=== PATIENT | female | born 1975 | race Caucasian/White ===

== ENCOUNTER 2023-03-19 16:17 | Outpatient (OUT) | payer BC, SELFPAY ==
--- NOTE | 2023-03-19 16:20 | MM_ITS ---
Patient Name: ALBARO RASMUSSEN MR#: [id number] : 1975 Exam Date: 03/19/2023 Ordering Doctor: DR EVANGELINA COLINDRES RADIOLOGY REPORT PROCEDURE: MM TOMOSYNTHESIS SCREENING BI COMPARISON: MG MAMM SCREEN 3D ROCK CAD, 03/16/2022. MG MAMM SCREEN 3D ROCK CAD, 03/06/2021. INDICATIONS: screening Calculator Name NCI Breast Cancer Risk Assessment Tool 5 Year Breast Cancer Risk 1.20% Lifetime Breast Cancer Risk 12.80% Personal Breast Cancer No Personal Ovarian Cancer No Treatments None Family Cancers None LOCATION: [facility] BREAST COMPOSITION: Scattered areas fibroglandular density. FINDINGS: DIAGNOSTIC CATEGORY 1--NEGATIVE. RIGHT BREAST: No significant suspicious finding. No significant change has occurred. LEFT BREAST: No significant suspicious finding. No significant change has occurred. RECOMMENDATIONS: ROUTINE MAMMOGRAM AND CLINICAL EVALUATION IN 12 MONTHS. PLEASE NOTE: A NORMAL MAMMOGRAM DOES NOT EXCLUDE THE POSSIBILITY OF BREAST CANCER. A CLINICALLY SUSPICIOUS PALPABLE LUMP SHOULD BE BIOPSIED. Dictated by: Dayron Brown M.D. on 03/25/2023 at 12:44 Approved by: Dayron Brown M.D. on 03/25/2023 at 12:53
== END 2023-03-19 16:18 | disposition home or self-care (01) ==
LOC: MAMMO 16:17
PROVIDERS: PCP Obstetrics & Gynecology; Visit Provider Obstetrics & Gynecology
DX: Z12.31 Encounter for screening mammogram for malignant neoplasm of breast (principal)
CPT/HCPCS: 77063; 77067

== ENCOUNTER 2024-03-25 07:36 | Outpatient (OUT) | payer OTHER, SELFPAY ==
--- OUTSIDE RECORDS SUMMARY | 2024-03-25 07:39 | XMS_ITS | CCD ---
Author Organization [facility] Inform ion Partnership [employer] Care Team Providers Care Chlorine Operator Name Role Phone DR EVANGELINA COLINDRES Admitting Unavailable PRINTJuan Alberto, DR HUTCHINSON Attending Unavailable REQUEST, DR MOLINA LISTED Primary Care Unavaila daljit REBOLLEDO, DR ARLENE Lobato Consulting Unavailable PRINTY, DR HUTCHINSON Consulting Unavailable PRINTYEVANGELINA Attending Unavailable Problems Problem Classification Problem Date Documented Da te Episodic/Chronic Other screening for suspected conditions (not mental disorders or infectious disease) (4 sources) Encounter for screening mammogram for malignant neoplasm of breast; Translations: [ENC SCR MAMMO MALIG NEOPLASM BREAST] Onset: 03-16-2022 Episodic Results Test Name Value Interpretation Reference Range Facil ity MG MAMM SCREEN 3D ROCK CADon 03-16-2022 MG MAMM SCREEN 3D ROCK CAD Patient: ALBARO RASMUSSEN. Exam Date: 03/16/2022 : 1975 Gender:F Ordering : DR EVANGELINA COLINDRES Admission #: [id number] Family : Order #: [id number] CLICK HERE TO VIEW EXAM RADIOLOGY REPORT PROCEDURE: MAMMOGRAM SCREENING 3D BILATERAL CAD COMPARISON: MG MAMM SCREEN ROCK W CAD, 02/08/2020. MG MAMM SCREEN 3D ROCK CAD, 03/06/2021. INDICATIONS: Screening mammography Calculator Name NCI Breast Cancer Risk Assessment Tool 5 Year Breast Cancer Risk 1.10% Lifetime Breast Cancer Risk 13.00% Personal Breast Cancer No Personal Ovarian Cancer No Treatments None Family Cancers None LOCATION: [facility] BREAST COMPOSITION: Scattered areas fibroglandular density. FINDINGS: DIAGNOSTIC CATEGORY 1--NEGATIVE. NO CHANGE FROM COMPARISON ASSESSMENT. Scattered benign-appearing lymph nodes are present. RIGHT BREAST: No significant suspicious finding. LEFT BREAST: No significant suspicious finding. RECOMMENDATIONS: ROUTINE MAMMOGRAM AND CLINICAL EVALUATION IN 12 MONTHS. PLEASE NOTE: A NORMAL MAMMOGRAM DOES NOT EXCLUDE THE POSSIBILITY OF BREAST CANCER. A CLINICALLY SUSPICIOUS PALPABLE LUMP SHOULD BE BIOPSIED. Dictated by: Arlene Rebolledo MD on 03/16/2022 at 10:27 Approved by: Arlene Rebolledo MD on 03/16/2022 at 10:28 [facility] Encounters Encounter Date Encounter Type Care Provider Facility Start: 12-31-2023 End: 12-31-2023 ambulatory EVANGELINA COLINDRES Not Available Start: 03-16-2022 End: 03-17-[address] EVANGELINA COLINDRES Facility: Payers Date Payer Category Payer Private Health Insurance [id number] 1975 Unknown [id number] 1975 Unknown [id number] 1958 Unknown [id number] Summary Purpose Family History No Family History Records FoundNo Family History Records Found Advance Directives No Advanced Directives Records FoundNo Advanced Directives Records Found Additional Source Comments INFORMATION SOURCE (unrecogn ized section and content) DATE CREATED AUTHOR 03/19/2022 [facility] pital DATE CREATED AUTHOR AUTHOR'S ORGANIZ ATION 01/01/2024 [facility] EPIC FOR RECORDS PERTAINING TO PATIENTS WHO ARE OR HAVE BEEN ENROLLED IN A CHEMICAL DEPENDENCY/SUBSTANCEABUSE PROGRAM, SOME INFORMATION MAY BE OMITTED. This clinical summary was aggregated from multiple sources. Caution should be exercised in using it in the provision of clinical care. This summary normalizes information from multiple sources, and as a consequence, information in this document may materially change the coding, format and clinical context of patient data. In addition, data may be omitted in some cases. CLINICAL DECISIONS SHOULD BE BASED ON THE PRIMARY CLINICAL RECORDS. [employer] provides no warranty or guarantee of the accuracy or completeness of information in this document.
--- NOTE | 2024-03-25 07:42 | MM_ITS ---
Patient Name: ALBARO RASMUSSEN MR#: [id number] : 1975 Exam Date: 03/25/2024 Ordering Doctor: DR EVANGELINA COLINDRES RADIOLOGY REPORT PROCEDURE: MM TOMOSYNTHESIS SCREENING BI COMPARISON: MM TOMOSYNTHESIS SCREENING BI, 03/19/2023. MG MAMM SCREEN 3D ROCK CAD, 03/16/2022. MG MAMM SCREEN 3D ROCK CAD, 03/06/2021. MG MAMM SCREEN ROCK W CAD, 01/23/2018. INDICATIONS: Screening Calculator Name NCI Breast Cancer Risk Assessment Tool 5 Year Breast Cancer Risk 1.20% Lifetime Breast Cancer Risk 12.70% Personal Breast Cancer No Personal Ovarian Cancer No Treatments None Family Cancers None LOCATION: [facility] BREAST COMPOSITION: There are scattered areas of fibroglandular density. FINDINGS: DIAGNOSTIC CATEGORY 1--NEGATIVE. RIGHT BREAST: No significant suspicious finding. No significant change has occurred. LEFT BREAST: No significant suspicious finding. No significant change has occurred. RECOMMENDATIONS: ROUTINE MAMMOGRAM AND CLINICAL EVALUATION IN 12 MONTHS. PLEASE NOTE: A NORMAL MAMMOGRAM DOES NOT EXCLUDE THE POSSIBILITY OF BREAST CANCER. A CLINICALLY SUSPICIOUS PALPABLE LUMP SHOULD BE BIOPSIED. Dictated by: Dayron Brown M.D. on 03/25/2024 at 10:52 Approved by: Dayron Brown M.D. on 03/25/2024 at 10:54
== END 2024-03-25 07:37 | disposition home or self-care (01) ==
LOC: MAMMO 07:37
PROVIDERS: PCP Obstetrics & Gynecology; Visit Provider Obstetrics & Gynecology
DX: Z12.31 Encounter for screening mammogram for malignant neoplasm of breast (principal)
CPT/HCPCS: 77063; 77067

== ENCOUNTER 2025-03-30 16:05 | Outpatient (OUT) | payer OTHER, SELFPAY ==
--- NOTE | 2025-03-30 16:08 | MM_ITS ---
Patient Name: ALBAOR RASMUSSEN MR#: [id number] : 1975 Exam Date: 03/30/2025 Ordering Doctor: DR EVANGELINA COLINDRES RADIOLOGY REPORT PROCEDURE: MM TOMOSYNTHESIS SCREENING BI COMPARISON: MM TOMOSYNTHESIS SCREENING BI, 03/25/2024. MM TOMOSYNTHESIS SCREENING BI, 03/19/2023. MG MAMM SCREEN 3D ROCK CAD, 03/16/2022. MG MAMM SCREEN ROCK W CAD, 01/23/2018. INDICATIONS: screening for malignant neoplasm of breast Calculator Name NCI Breast Cancer Risk Assessment Tool 5 Year Breast Cancer Risk 1.30% Lifetime Breast Cancer Risk 12.50% Personal Breast Cancer No Personal Ovarian Cancer No Treatments None Family Cancers None LOCATION: [facility] BREAST COMPOSITION: There are scattered areas of fibroglandular density. FINDINGS: RIGHT BREAST: No significant suspicious finding. LEFT BREAST: No significant suspicious finding. DIAGNOSTIC CATEGORY 1--NEGATIVE. NO CHANGE FROM COMPARISON ASSESSMENT. RECOMMENDATIONS: ROUTINE MAMMOGRAM AND CLINICAL EVALUATION IN 12 MONTHS. Dictated by: Cecil Mcgovern MD on 03/31/2025 at 10:38 Approved by: Cecil Mcgovern MD on 03/31/2025 at 10:40
--- OUTSIDE RECORDS SUMMARY | 2025-03-30 16:08 | XMS_ITS | Clinical Summary ---
Author Organization [facility] Address [address] [place] [address] Care Team Providers Care Trolley Operator Name Role Phone Unallocated, Noms Provider MD Primary Care Provi edil Allergies No known active allergies Medications MedicationSigDispense QuantityRefillsLast FilledStart DateEnd DateStatus loratadine (Claritin) 10 MG tablet Take 10 mg by mouth 1 (one) time each day at the same time.Active Calcium Carbonate (CALCIUM 500 PO) Take by mouthActive VITAMIN D PO Take by mouthActive Multiple Vitamin (multivitamin) tablet Take 1 tablet by mouth DailyActive norethindrone-ethinyl estradiol (Alyacen 135) 1-35 MG-MCG tablet Indications:Encounter for control pills maintenanceTake 1 tablet by mouth in the morning. 84 tablet 5Active Active Problems No known active problems Encounters DateTypeDepartmentCare UflgFtkxdpyncyx56/09/2025 1:45 PM EDTOffice Visit [facility] [place] [facility] [address] [place] [phone] Evangelina Colindres MD Well woman exam with routine gynecological exam (Primary Dx); Other screening mammogram; Encounter for control pills /09/2025amboo flowsheet [facility] [address] [place] [phone] Evangelina Colindres MD 09/09/2025Travelfrom Last 3 Months Family History Medical HistoryRelationNameCommentsDiabetesMaternal GrandmotherGrandmotherHeart diseaseMaternal GrandmotherGrandmotherStrokeMaternal GrandmotherGrandmother EndometriosisMotherRelationNameStatusCommentsMaternal GrandmotherGrandmother Mother Social History Tobacco UseTypesPacks/DayYears UsedDateSmoking Tobacco: NeverSmokeless Tobacco: Never Tobacco Cessation:Counseling Given: Not Answered Alcohol UseStandard Drinks/WeekCommentsYes2 (1 standard drink = 0.6 oz pure alcohol)coffee 1-2 cups per dayCommentsNoSex and Gender InformationValue Date RecordedSex Assigned at BirthNot on fileLegal IivQlnyss21/15/2023 7:25 PM EDTGender IdentityNot on fileSexual OrientationNot on file Last Filed Vital Signs Vital SignReadingTime TakenCommentsBlood Bzbcaxmy685/6409 1:39 PM EDT Pulse--Pdipjpkrhrq42.3 ??C (97.4 ??F)04/20/2024 11:55 AM ESTRespiratory Rate-- Oxygen Saturation--Inhaled Oxygen Concentration--Qpluxg97.4 kg (142 lb) 01/05/2025 1:39 PM RVXXbqrzh545.8 cm (5' 4.5 )06/09/2024 2:59 PM ESTBody Mass Qwbhw879106/09/2024 2:59 PM EST Plan of Treatment DateTypeDepartmentCare Team (Latest Contact Info)Ctttojwqxkv37/15/2026 1:45 PM EDTOffice Visit [facility] [address] [place] [address] Evangelina Colindres MD [address] [place] [address] Health MaintenanceDue DateLast DoneCommentsCT Opokffjeddck37/08/1977Colonoscopy 1975Colorectal Cancer Wltiztbog68/08/1977FIT-DNA1976FIT1975 FOBT1975 8543Ihduvkidtzrbd39/08/1977COVID-19 Vaccine (1 - 2025-26 season) 2024Influenza Vaccine (#1), 02/17/2018, 02/18/2017 Wnluvaeat26, 03/25/2023, 03/16/2022, Additional history exists Pap Smear/ervical Cancer Ohzoclohe24/28/2028HPV/Cotest , 11/17/2020, 11/17/2019, Additional history exists Pneumococcal Vaccine: Pediatrics (0 to 5 Years) and At-Risk Patients (6 to 64 Years)Aged OutNo longer eligible based on patient's age to complete this topic Procedures Procedure NamePriorityDate/TimeAssociated DiagnosisCommentsMM TOMOSYNTHESIS SCREENING BI03/25/2024 10:55 AM EST THINPREP TIS PAP AND HPV MRNA E6/E7 WITH REFLEX TO HPV 16,18/35Xcihmts72/28/2023 2:53 PM EDT Cervical cancer screening Screening for HPV (human papillomavirus) from Last 3 Months or Most Recently Relevant to Health Maintenance Results * MM TOMOSYNTHESIS SCREENING BI (03/25/2024 10:55 AM EST)Anatomical Region LateralityModalityOtherSpecimen (Source)Anatomical Location / Laterality Collection Method / VolumeCollection TimeReceived Time03/25/2024 10:55 AM EST Narrative 03/25/2024 10:56 AM EST [facility] ?[address] ? [place] [address] ? Mammography Report ? Signed ? Patient: Held,Zaida M ?MR#: [id number] ?? : 1975 ?Acct:[id number] ?? Age/Sex: 48 / F ?ADM Date: 11//24 ?? Loc: MAMMO ? Attending Dr: EVANGELINA PRINTY ? Ordering Physician: PRINTY,EVANGELINA ? Results: ? Date of Service: 11/27/24 ?Follow Up: ? Procedure(s): MM tomosynthesis screening BI ?? Accession Number(s): [id number] ? cc: JENS,EVANGELINA ? Patient Name: ? ZAIDA HELD ? MR#: [id number] ? : 1975 ? Exam Date: 03/25/2024 ?? Ordering Doctor: DR EVANGELINA COLINDRES ? RADIOLOGY REPORT ? PROCEDURE: ? MM TOMOSYNTHESIS SCREENING BI ? COMPARISON: ? MM TOMOSYNTHESIS SCREENING BI, 03/19/2023. ??MG MAMM SCREEN 3D ?? ROCK CAD, 03/16/2022. ??MG MAMM SCREEN 3D ROCK CAD, 03/06/2021. ??MG MAMM SCREEN ?? ROCK W CAD, 01/23/2018. ? INDICATIONS: ? Screening ? Calculator Name ? NCI Breast Cancer Risk Assessment Tool ?? 5 Year Breast Cancer Risk ? 1.20% ?? Lifetime Breast Cancer Risk ? 12.70% ?? Personal Breast Cancer ?No ?? Personal Ovarian Cancer ? No ?? Treatments ? None ?? Family Cancers ? None ? LOCATION: ? [facility] ? BREAST COMPOSITION: ? There are scattered areas of fibroglandular density. ? FINDINGS: ? DIAGNOSTIC CATEGORY 1--NEGATIVE. ? RIGHT BREAST: ??No significant suspicious finding. ??No significant change has ?? occurred. ? LEFT BREAST: ??No significant suspicious finding. ??No significant change has ?? occurred. ? RECOMMENDATIONS: ? ROUTINE MAMMOGRAM AND CLINICAL EVALUATION IN 12 MONTHS. ? PLEASE NOTE: ??A NORMAL MAMMOGRAM DOES NOT EXCLUDE THE POSSIBILITY OF BREAST ?? CANCER. ??A CLINICALLY SUSPICIOUS PALPABLE LUMP SHOULD BE BIOPSIED. ? Dictated by: Dayron Brown M.D. on 03/25/2024 at 10:52 ? Approved by: Dayron Brown M.D. on 03/25/2024 at 10:54 ? Dictated By: ?Dayron Brown M.D. ? Signed By: ?03/25/24 1056 ? DD/ 1055 ? TD/TT: ? Oral And Maxillofacial Surgery: Procedure Note Radiology, Radiologist, MD - 03/25/2024 [place] [address] Mammography Report Signed Patient: Zaida Huggins MMR#: [id number] : 1975Acct:[id number] Age/Sex: 48 / FADM Date: 03/25/24 Loc: MAMMO Attending Dr: EVANGELINA COLINDRES Ordering Physician: EVANGELINA COLINDRESResults: Date of Service: 03/25/24Follow Up: Procedure(s): MM tomosynthesis screening BI Accession Number(s): [id number] cc: EVANGELINA COLINDRES Patient Name: ZAIDA HUGGINS MR#: [id number] : 1975 Exam Date: 03/25/2024 Ordering Doctor: DR EVANGELINA COLINDRES RADIOLOGY REPORT PROCEDURE: MM TOMOSYNTHESIS SCREENING BI COMPARISON: MM TOMOSYNTHESIS SCREENING BI, 03/19/2023. MG MAMM XCTTFE5M ROCK CAD, 03/16/2022. MG MAMM SCREEN 3D ROCK CAD, 03/06/2021. MG MAMMSCREEN ROCK W CAD, 01/23/2018. INDICATIONS: Screening Calculator Name NCI Breast Cancer Risk Assessment Tool 5 Year Breast Cancer Risk 1.20% Lifetime Breast Cancer Risk 12.70% Personal Breast Cancer No Personal Ovarian Cancer No Treatments None Family Cancers None LOCATION: [facility] BREAST COMPOSITION: There are scattered areas of fibroglandulardensity. FINDINGS: DIAGNOSTIC CATEGORY 1--NEGATIVE. RIGHT BREAST: No significant suspicious finding. No significant changehas occurred. LEFT BREAST: No significant suspicious finding. No significant changehas occurred. RECOMMENDATIONS: ROUTINE MAMMOGRAM AND CLINICAL EVALUATION IN 12 MONTHS. PLEASE NOTE: A NORMAL MAMMOGRAM DOES NOT EXCLUDE THE POSSIBILITY OFBREAST CANCER. A CLINICALLY SUSPICIOUS PALPABLE LUMP SHOULD BE BIOPSIED. Dictated by: Dayron Brown M.D. on 03/25/2024 at 10:52 Approved by: Dayron Brown M.D. on 03/25/2024 at 10:54 Dictated By: Dayron Brown M.D. Signed By:03/25/24 1056 DD/ 1055 TD/TT: Oral And Maxillofacial Surgery: Authorizing ProviderResult TypeResult StatusBrian Carmen Colindres MDCLINISYNC IMAGING Final Result * THINPREP TIS PAP AND HPV MRNA E6/E7 WITH REFLEX TO HPV 16,18/45 (12/24/2022 2:53 PM EDT)ComponentValueRef RangeTest MethodAnalysis TimePerformed At Pathologist SignatureCLINICAL INFORMATIONQUESTComment:None givenLMPQUEST Comment:NONE GIVENPREV. PAPQUESTComment:NONE GIVENPREV. BXQUESTComment:NONE GIVENSOURCEQUESTComment:None givenSTATEMENT OF ADEQUACYQUESTComment: Satisfactory for evaluation. Endocervical/transformation zone component present. INTERPRETATION/RESULTQUESTComment: Cytology Results: Negative for intraepithelial lesion or malignancy. COMMENTQUESTComment: This Pap test has been evaluated with computer assisted technology. CYTOTECHNOLOGISTQUESTComment: EMP, CT(ASCP) CT screening location: [facility], [address] [place] [address]. (ALWAYS MESSAGE)QUESTComment: EXPLANATORY NOTE: The Pap is a screening test for cervical cancer. It is not a diagnostic test and is subject to false negative and false positive results. It is most reliable when a satisfactory sample, regularly obtained, is submitted with relevant clinical findings and history, and when the Pap result is evaluated along with historic and current clinical information. HPV MRNA E6/E7Not DetectedNot DetectedQUESTComment: Methodology: Housekeeping Coordinator-Mediated Amplification This assay detects E6/E7 viral messenger RNA (mRNA) from 14 high-risk HPV types (16,18,31,33,35,39,45,51,52,56,58,59,66,68). Cervical sources are required for HPV testing. If a vaginal source from a patient who has had a total hysterectomy with removal of cervix was submitted, please contact the testing laboratory for alternative testing options. For additional information, please refer to http://education.[employer].SupplyFrame/faq/TQH335u7 (This link if provided for information/ educational purposes only.) Specimen (Source)Anatomical Location / LateralityCollection Method / Volume Collection TimeReceived TimeVaginal Fluid12/24/2022 2:53 PM EDT12/25/2022 3:51 AM EDT Narrative Resulting Agency Comment Performing Organization Information ?Site ID: [id number] ?Name: [facility] ?Address: [address] [place] [address], [address] [place] [id number] ?Director: Robert Payne MD Authorizing ProviderResult TypeResult StatusEvangelina Colindres MDLAB CYTOLOGY ORDERABLESFinal ResultPerforming OrganizationAddressCity/State/ZIP CodePhone Number [facility] from Last 3 Months or Most Recently Relevant to Health Maintenance Insurance * Guarantor: Zaida Huggins TypeRelation to PatientDate of BirthPhone Billing AddressPersonal/RnvkcxAjrt23/08/1976 [address] [place] [address] Care Teams Team MemberRelationshipSpecialtyStart DateEnd Date Unallocated, Noms MD Beth [address] [place] [address] PCP - [facility]12/24/22
--- OUTSIDE RECORDS SUMMARY | 2025-03-30 16:10 | XMS_ITS | CCD ---
Author Organization [facility] Care Team Providers Care Bricklayer Helper Name Role Phone JENS, DR HUTCHINSON Admitting Unavailable JENS, DR HUTCHINSON Attending Unavailable REQUEST, NONE LISTED Primary Care Unavaila daljit REBOLLEDO, DR ARLENE Lobato Consulting Unavailable PRINTY, DR HUTCHINSON Consulting Unavailable Unallocated MD, Noms Provider Primary Care Provi edil Unallocated , Noms Provider Primary Care Provi edil SUNIL GROVE Attending Unavailable THOMPSON ROSENTHAL Referring Unavailable THOMPSON ROSENTHAL Attending Unavailable THOMPSON ROSENTHAL Referring Unavailable THOMPSON ROSENTHAL Attending Unavailable THOMPSON ROSENTHAL Referring Unavailable THOMPSON ROSENTHAL Referring Unavailable EVANGELINA CULVER Attending Unavailable THOMPSON ROSENTHAL Referring Unavailable BRIAN SOLOMON Attending Unavailable THOMPSON ROSENTHAL Referring Unavailable SUNIL GROVE Attending Unavailable THOMPSON ROSENTHAL Referring Unavailable SUNIL GROVE Attending Unavailable THOMPSON ROSENTHAL Referring Unavailable BRIAN SOLOMON Attending Unavailable THOMPSON ROSENTHAL Referring Unavailable Medications Current Medications MedicationDrug Class(es)DatesSig (Normalized)Sig (Original)Calcium Carbonate (2 sources)Calcium Carbonate (CALCIUM 500 PO) Take by mouth Activeethinyl estradiol 0.035 mg / norethindrone acetate 1 mg oral tablet (20 sources)EstrogenStart: 12-31-2023 End: 47-35-6697tscipgkzpjklw-ethinyl estradiol (Alyacen 135) 1-35 MG-MCG tablet Indications: Encounter for control pills maintenance Take 1 tablet by mouth in the morning. 84 tablet 4 01/05/2025 ActiveStart: 11-22-2023 End: 58-14-8182bjjg 1 tablet by mouth once daily in the morningAlyacen 1/35 1-35 MG-MCG tablet Indications: Encounter for control pills maintenance TAKE 1 TABLET BY MOUTH EVERY DAY IN THE MORNING 84 tablet 4 11/22/2023 12/31/2023 Discontinued (Reorder)loratadine 10 mg oral tablet (20 sources)take 1 tablet by mouth once dailyloratadine (Claritin) 10 MG tablet Take 10 mg by mouth 1 (one) time each day at the same time. ActiveMultiple Vitamin (multivitamin) tablet (2 sources)take 1 tablet by mouth once dailyMultiple Vitamin (multivitamin) tablet Take 1 tablet by mouth Daily ActiveVITAMIN D PO (2 sources)VITAMIN D PO Take by mouth Active Completed/Discontinued Medications MedicationDrug Class(es)DatesSig (Normalized)Sig (Original)calcium carbonate 1250 mg / cholecalciferol 1000 unt / vitamin k 0.4 mg chewable tablet (20 sources)Vitamin D End: 51-61-7844Urajvsn-Vitamin D-Vitamin K (Calcium + D) 500-1000-40 MG-UNT-MCG chewable tablet as directed Dafgeq9201/05/2025 Discontinued (Ineffective) predniSONE 10 mg oral tablet (15 sources)Start: 04-20-2024 End: 77-48-6643leidmqBPZR (Deltasone) 10 MG tablet Indications: Right shoulder pain, unspecified chronicity 6 pills day 1 & 2, 5 pills day 3 & 4, 4 pills day 5 & 6, 3 pills day 7 & 8, 2 pills day 9 & 10, 1 pill day 11 & 12 42 tablet 04/20/2024 06/09/2024 Discontinued Problems Problem ClassificationProblemDateDocumented DateEpisodic/ChronicContraceptive and procreative management (4 sources)Oral contraception status; Translations: [Encounter for surveillance of contraceptive pills]05-83-3667YbfflqviTxpcm non-traumatic joint disorders (9 sources)Pain in right shoulder; Translations: [Pain in joint, shoulder region]09-54-1079AvrejypzZcsrl screening for suspected conditions (not mental disorders or infectious disease) (8 sources)Encounter for screening mammogram for malignant neoplasm of breast; Translations: [Breast neoplasm screening status]Onset: 99-70-7397Okdndjsg Unclassified (2 sources)Right shoulder pain, unspecified htobtqnapt75-21-5423 Results Test NameValueInterpretationReference RangeFacilityXR Cervical spine 2 or 3 Viewson 07-84-4376Jsjhmbx Result: 2 views cervical spine, AP/lateral, taken today and saved to the permanent medical record. Loss of lordosis. Disc narrowing and endplate osteophytes at C6-C7.[facility] CenterRad[facility] Study observation (narrative) [facility] HealthcareXR Shoulder - right 2 Viewson 76-68-8483Tccejfu Result: 4 views right shoulder, Grashey/Zanca/outlet/axillary, taken today and saved to the permanent medical record are reviewed. GH and AC joint spaces preserved. AHI WNL. Type 2 acromion.[facility] CenterRadiology Study observation (narrative)[facility] TOMOSYNTHESIS SCREENING BIon 93-22-[place] [address] Mammography Report Signed Patient: Jyada Rasmussen MR#: [id number] : 1975 Acct:[id number] Age/Sex: 48 / F ADM Date: 03/25/24 Loc: MAMMO Attending Dr: EVANGELINA CULVER Ordering Physician: EVANGELINA CULVER Results: Date of Service: 03/25/24 Follow Up: Procedure(s): MM tomosynthesis screening BI Accession Number(s): [id number] cc: EVANGELINA CULVER Patient Name: JAYDA RASMUSSEN MR#: [id number] : 1975 Exam Date: 03/25/2024 Ordering Doctor: DR EVANGELINA CULVER RADIOLOGY REPORT PROCEDURE: MM TOMOSYNTHESIS SCREENING BI COMPARISON: MM TOMOSYNTHESIS SCREENING BI, 03/19/2023. MG MAMM SCREEN 3D ROCK CAD, 03/16/2022. MG MAMM SCREEN 3D ROCK CAD, 03/06/2021. MG MAMM SCREEN ROCK W CAD, 01/23/2018. INDICATIONS: Screening Calculator Name NCI Breast Cancer Risk Assessment Tool 5 Year Breast Cancer Risk 1.20% Lifetime Breast Cancer Risk 12.70% Personal Breast Cancer No Personal Ovarian Cancer No Treatments None Family Cancers None LOCATION: [facility] BREAST COMPOSITION: There are scattered areas of fibroglandular density. FINDINGS: DIAGNOSTIC CATEGORY 1--NEGATIVE. RIGHT BREAST: No significant suspicious finding. No significant change has occurred. LEFT BREAST: No significant suspicious finding. No significant change has occurred. RECOMMENDATIONS: ROUTINE MAMMOGRAM AND CLINICAL EVALUATION IN 12 MONTHS. PLEASE NOTE: A NORMAL MAMMOGRAM DOES NOT EXCLUDE THE POSSIBILITY OF BREAST CANCER. A CLINICALLY SUSPICIOUS PALPABLE LUMP SHOULD BE BIOPSIED. Dictated by: Dayron Brown M.D. on 03/25/2024 at 10:52 Approved by: Dayron Brown M.D. on 03/25/2024 at 10:54 Dictated By: Dayron Brown M.D. Signed By: 03/25/24 1056 DD/ 1055 TD/TT: [employer] Worker:TBHRadiology, Radiologist, - 03/25/2024 [place] [address] Mammography Report Signed Patient: Jayda Rasmussen MR#: [id number] : 1975 Acct:[id number] Age/Sex: 48 / F ADM Date: 03/25/24 Loc: MAMMO Attending Dr: EVANGELINA CULVER Ordering Physician: EVANGELINA CULVER Results: Date of Service: 03/25/24 Follow Up: Procedure(s): MM tomosynthesis screening BI Accession Number(s): [id number] cc: EVANGELINA CULVER Patient Name: JAYDA RASMUSSEN MR#: [id number] : 1975 Exam Date: 03/25/2024 Ordering Doctor: DR EVANGELINA CULVER RADIOLOGY REPORT PROCEDURE: MM TOMOSYNTHESIS SCREENING BI COMPARISON: MM TOMOSYNTHESIS SCREENING BI, 03/19/2023. MG MAMM SCREEN 3D ROCK CAD, 03/16/2022. MG MAMM SCREEN 3D ROCK CAD, 03/06/2021. MG MAMM SCREEN ROCK W CAD, 01/23/2018. INDICATIONS: Screening Calculator Name NCI Breast Cancer Risk Assessment Tool 5 Year Breast Cancer Risk 1.20% Lifetime Breast Cancer Risk 12.70% Personal Breast Cancer No Personal Ovarian Cancer No Treatments None Family Cancers None LOCATION: [facility] BREAST COMPOSITION: There are scattered areas of fibroglandular density. FINDINGS: DIAGNOSTIC CATEGORY 1--NEGATIVE. RIGHT BREAST: No significant suspicious finding. No significant change has occurred. LEFT BREAST: No significant suspicious finding. No significant change has occurred. RECOMMENDATIONS: ROUTINE MAMMOGRAM AND CLINICAL EVALUATION IN 12 MONTHS. PLEASE NOTE: A NORMAL MAMMOGRAM DOES NOT EXCLUDE THE POSSIBILITY OF BREAST CANCER. A CLINICALLY SUSPICIOUS PALPABLE LUMP SHOULD BE BIOPSIED. Dictated by: Dayron Brown M.D. on 03/25/2024 at 10:52 Approved by: Dayron Brown M.D. on 03/25/2024 at 10:54 Dictated By: Dayron Brown M.D. Signed By: 03/25/24 1056 DD/ 1055 TD/TT: [employer] Worker: [facility] HospitalRad[facility] observation (narrative)[facility] TOMOSYNTHESIS SCREENING BIOrdered By: Radiologist Radiology on 74-29-1278K[employer] Work Phone: MG MAMM SCREEN 3D ROCK CADon 13-11-6717JB MAMM SCREEN 3D ROCK CADPatient: JAYDA RASMUSSEN Exam Date: 03/16/2022 : 1975 Gender:F Ordering : DR EVANGELINA CULVER Admission #: [id number] Family : Order #: [id number] CLICK HERE TO VIEW EXAM RADIOLOGY REPORT [...] Treatments None Family Cancers None LOCATION: [facility] BREAST COMPOSITION: Scattered areas fibroglandular density. FINDINGS: [...] by: Arlene Rebolledo MD on 03/16/2022 at 10:28[facility] Vital Signs Date TimeVital SignValuePerforming MueiaobwaNqpjvuyt96-35-2120 13:39-0400Body mass index (BMI) [Ratio]24 kg/s1WanzjEvangelina Culver MD Work Phone: [facility] HospitalMkyjoorqpz74-38-9811 13:39-0400Body oeospz00.41 kgEvangelina Culver MD Work Phone: [facility] HospitalFbefctnmgp21-44-8667 13:39-0400Diastolic blood hmwxebep99 mm[Hg]Evangelina Culver MD Work Phone: [facility] HospitalZljwyllzva57-39-6425 13:39-0400Systolic blood alksmhkr806 mm[Hg]Evangelina Culver MD Work Phone: [facility] HospitalDvodxvtidl05-23-4703 14:59-0500Body ayggbf158.8 cmThompson Galo DO Work Phone: [phone]02-11-2025 14:59-0500Body mass index (BMI) [Ratio]24.34 kg/j9Doeqj Galo DO Work Phone: [phone]02-11-2025 14:59-0500Body ijully70.32 kgThompson Galo DO Work Phone: [phone] [place], [place] 9455812-23-2024 11:55-0500Body .8 cmThompson Galo DO Work Phone: [phone] [place], [place] 9455812-23-2024 11:55-0500Body mass index (BMI) [Ratio]24.34 kg/c4Yogjc Galo DO Work Phone: [phone] [place], [place] 9455812-23-2024 11:55-0500Body temperature 97.39 [degF]Thompson Rosenthal DO Work Phone: [phone] [place], [place] 9455812-23-2024 11:55-0500Body mtheqe05.32 kgThompson Galo DO Work Phone: [phone] HospitalLqffkdzivp66-66-4889 13:31-0400Body mass index (BMI) [Ratio]24.03 kg/b9KxergEvangelina Culver MD Work Phone: no[facility] CampusUbfrecepty39-62-2921 13:31-0400Body lgbisj35.5 kg Evangelina Culver MD Work Phone: NORes[facility] CampusLrinptgznl50-53-1172 13:31-0400Diastolic blood mm[Hg]Evangelina Culver MD Work Phone: no[facility] CampusDktmlxremr07-07-0631 13:31-0400Systolic blood mm[Hg]Evangelina Culver MD Work Phone: noMS [facility] Encounters Encounter DateEncounter TypeCare ProviderFacilityStart: 01-05-2025 End: 20-98-0778Vuufov Dorian Culver MD Work Phone: [facility] [place] OBGYNStart: 01-05-2025 End: 27-47-0125Gzfxkg Dorian Culver MD Work Phone: noCO [place] OBGYNStart: 01-05-2025 End: 50-03-9998Ptgamhi encounter procedureEvangelina Culver MD Work Phone: noCO [facility] Work Phone: start: 01-05-2025 End: 98-45-5685Wvkfosgq preventive med est patient 40-64yrsEvangelina Culver MD Work Phone: noms [place] OBGYNComment on above:Well woman exam with routine gynecological exam (Primary Dx); Other screening mammogram; Encounter for control pills maintenanceStart: 01-05-2025 End: 80-26-0567aupvpmgdtnVXJXY J PRINTYNot AvailableStart: 06-09-2024 End: 40-69-6320Xlwkjwu encounter procedureThompson Rosenthal DO Work Phone: noms NB ORTHOComment on above:Right shoulder pain, unspecified chronicity (Primary Dx)Start: 06-09-2024 End: 78-99-5428tsbduoibmpKQHFW A BROWNNot AvailableStart: 06-09-2024 End: 62-66-9303Jqosjf Cliff Rosenthal DO Work Phone: NOEY ORTHOStart: 06-09-2024 End: 23-79-6908Zeptws Cliff Rosenthal DO Work Phone: noms ORTHOStart: 05-22-2024 End: 09-09-7536rilnyiprlnHxjffoy Kelbley PTANOMS CI PTComment on above:Right shoulder pain, unspecified chronicity (Primary Dx)Start: 05-22-2024 End: 88-99-6663Vrmmjn flowsheetMelissa Kelbley PTANOMS CI PTStart: 05-22-2024 End: 47-46-3750Rqfijf flowsheetMelissa Kelbley PTANOMS CI PTStart: 05-12-2024 End: 41-10-3754llyqknkkihNnviezDebby Solomon PT Work Phone: noms CI PTComment on above:Right shoulder pain, unspecified chronicity (Primary Dx)Start: 05-12-2024 End: 99-27-7018Fmxiifvanessa Solomon PT Work Phone: noms CI PTStart: 05-12-2024 End: 99-05-4530Cquaiuvanessa Solomon PT Work Phone: noms CI PTStart: 05-07-2024 End: 65-19-8314oonwlmcsgsGjhgxxy Kelbley PTANOMS CI PTComment on above:Right shoulder pain, unspecified chronicity (Primary Dx)Start: 05-07-2024 End: 01-53-9066Venduf flowsheetMelissa Kelbley PTANOMS CI PTStart: 05-07-2024 End: 04-64-6755Hqxttw flowsheetMelissa Kelbley PTANOMS CI PTStart: 05-05-2024 End: 56-59-0727cwlvcbitrvPalptyi Kelbley PTANOMS CI PTComment on above:Right shoulder pain, unspecified chronicity (Primary Dx)Start: 05-05-2024 End: 83-22-7638Isrkzm flowsheetMelissa Kelbley PTANOMS CI PTStart: 05-05-2024 End: 18-89-6628Mbuonz flowsheetSunil Grove PTANOMS CI PTStart: 04-27-2024 End: 26-29-2158Kmmfml flowsheetAnthonyálvaromaribel Solomon PT Work Phone: NOMS CI PTStart: 04-27-2024 End: 77-20-9920Iummgv flowsheetBrian Solomon PT Work Phone: NOMS CI PTStart: 04-27-2024 End: 97-27-2579xpstwyznaeSmvcfv T Blackston PT Work Phone: NOMS CI PTComment on above:Right shoulder pain, unspecified chronicity (Primary Dx)Start: 04-20-2024 End: 70-35-7484Ugooag Cliff Kirkland Galo DO Work Phone: NOMS SWS ORTHOAOStart: 04-20-2024 End: 95-96-9868Qbpclz Cliff Rosenthal DO Work Phone: [phone] SWS ORTHOAOStart: 04-20-2024 End: 53-97-6304Atbzuwq encounter procedureThompson Rosenthal DO Work Phone: NOMS SWS ORTHOAOComment on above:Right shoulder pain, unspecified chronicity (Primary Dx)Start: 04-20-2024 End: 42-74-1682ebfmusvemzAZLFB A BROWNNot AvailableStart: 03-25-2024 End: 15-79-4917Lggiszmqi Result Deepthi Culver MD Work Phone: NOOT External Department UnsolicitedStart: 03-25-2024 End: 50-88-9707Zqftkjrqf Result EncounterEvangelina Culver MD Work Phone: noms External Department UnsolicitedStart: 12-31-2023 End: 28-78-9971Dpbbyx Dorian Culver MD Work Phone: NOVX SWS OBStart: 12-31-2023 End: 82-91-6637Hjlzoi Dorian Culver MD Work Phone: [facility] OBStart: 12-31-2023 End: 38-70-1377Ougednd encounter procedureEvangelina Culver MD Work Phone: NOCO HealthcareStart: 12-31-2023 End: 60-00-6933Dhxzbidr preventive med est patient 40-64yrsEvangelina Culver MD Work Phone: [facility] OBComment on above:Encounter for control pills maintenance (Primary Dx); Well woman exam with routine gynecological exam; Other screening mammogramStart: 03-16-2022 End: 18-00-0997blgqioujvwHZ EVANGELINA CULVERFacility:H1 Procedures DateProcedureProcedure DetailPerforming ClinicianStart: 04-20-2024 End: 65-74-9715Ocoyv spine cervical 2 or 3 viewsThompson Rosenthal DO Work Phone: Start: 75-45-6646WZ TOMOSYNTHESIS SCREENING Lesli Culver MD Work Phone: start: 25-63-7712OdsekcsnmujNnyex Brown DO Work Phone: Start: 04-84-4933EqwpduzkkmeTqfrq Printy MD Work Phone: start: 84-61-6358Hmsjnihkywn observation [Identifier] in Cervix by Cyto stainEvangelina Culver MD Work Phone: Plan of Treatment DateCare ActivityDetailAuthorStart: 30-74-7263Icnmqcihf for malignant neoplasm of cervixNOMS HealthcareStart: 01-11-2026 End: 32-50-0170Xzjyrzr encounter zbuzlgdem09/15/2026 1:45 PM EDT Office Visit JESSICA BOOTH [address] [place] [address] Evangelina Culver MD [address] [place] [address] NOMKlever MOSSNStart: 08-83-2800Cjgwsormq for malignant neoplasm of cervixPap SmearNOCO HealthcareStart: 03-26-2025 End: 17-30-3021ZKQ Breast - bilateral screeningBilateral screening mammogram with tomosynthesis Imaging Routine Other screening mammogram Expected: 03/26/2025, Expires: 02/22/2026[facility] Work Phone: comment on above:Expected: 03/26/2025, Expires: 02/22/2026Start: 01-63-6499Ouutifgkh for malignant neoplasm of breastMammogram NOMS HealthcareStart: 01-05-2025 End: 63-90-0593Uyttqva encounter procedureNOMS SWS OBComment on above:Well woman exam with routine gynecological exam; Other screening mammogramStart: 02-38-1984Lnjqwgdiu vaccinationInfluenza Vaccine (#1)[facility]S HealthcareStart: 06-09-2024 End: 31-40-9682Eiuxfji encounter procedureNOMS NB ORTHOComment on above:Arrived Start: 06-02-2024 End: 48-67-2828Oyhqpnp encounter wivdlbdpx04/04/2025 2:45 PM EST Office Visit [facility]THO [address] [place] [address] Thompson Rosenthal DO [address] [facility] [place] [address] NOMS NB ORTHOStart: 05-22-2024 End: 42-71-3153jiybwneaes42/24/2025 2:30 PM EST Treatment [facility] CI PT [address] [facility] [address] [place] [address] Sunil Grove PTA ArrivedNOMS CI PTComment on above:ArrivedStart: 05-14-2024 End: 04-05-9692zuzwtpfvew92/16/2025 4:30 PM EST Treatment [facility] PT [address] [facility] [address] [place] [address] Brian Solomon, PT [address] [facility] [address] [place] [address] NOMS CI PTStart: 05-12-2024 End: 78-46-7534gwywzhldgcBMTJ CI PTComment on above:ArrivedStart: 05-07-2024 End: 45-57-9433dniybfexsoACIN CI PTComment on above:ArrivedStart: 05-05-2024 End: 87-53-5978lwldusnlxkKAHW CI PTComment on above:ArrivedStart: 04-27-2024 End: 44-72-4312aidmxjlygdYHNG CI PTComment on above:Right shoulder pain, unspecified chronicityStart: 04-20-2024 End: 29-22-0817Ybugdai encounter vcxtemrva05/23/2024 11:45 AM EST Office Visit [facility] ORTHOA[facility] [address] [place] [address] Thompson Rosenthal DO [address] [facility] [place] [address] ArrivedNOMS SWS ORTHOAOComment on above:ArrivedStart: 97-21-6239Eraeagvjf for malignant neoplasm of breastMammogramNOCO Healthcare Start: 03-20-2024 End: 91-40-5902ZRL Breast - bilateral screeningBilateral screening mammogram with tomosynthesis Imaging Routine Other screening mammogram Expected: 03/20/2024, Expires: 02/24/2025[facility] Work Phone: comment on above:Expected: 03/20/2024, Expires: 02/24/2025Start: 12-31-2023 End: 41-94-8017Jvvocpf encounter xuodvtsro57/03/2024 1:30 PM EDT Office Visit [facility] OB [address] [place] [address] Evangelina Culver MD [address] [place] [address] Well woman exam with routine gynecological exam; Other screening mammogramNOMS SWS OBComment on above:Well woman exam with routine gynecological exam; Other screening mammogramStart: 06-82-4432Vwueyyfir vaccinationInfluenza Vaccine (#1)NOMS HealthcareStart: 69-04-8100Wpcmgammp for malignant neoplasm of colon [facility] Immunizations Immunization DateImmunizationNotesCare LqjszqrxUocylrkg40-27-5121pzmqvhqma virus vaccine, unspecified formulationEvangelina Culver MD Work Phone: [facility] Payers DatePayer CategoryPayerPolicy [id number] Health Insurance [id number] Health Insurance [id number] BCBS [id number] 2022-[facility] [phone] [address] [place] [id number] [id number] 2.0.1.022021.3.57[id number] 2..1.805812.3.57[id number] 2..1.870873.3.57[id number] 2.0.1.633349.3.57[id number] 2.0.1.955768.3.57[id number] 2.0.1.808508.3.57[id number] 2.0.1.277432.3.579.[id number] 2.0.1.538783.3.57[id number] 2.16.840.1.379931.3.57[id number] 2.16.840.1.538575.3.57[id number] 2..840.1.354686.3.57[id number] 2.16.840.1.071713.3.579.2.128144-07-5498Zeltklq682931199992 Social History DateTypeDetailFacilityStart: 66-49-6428Ylzdckr smoking status NHISNever smoked tobaccoJORDAN VALLEY MED[facility] HealthcareStart: 52-14-2813Qdibgpr use and exposureSmokeless tobacco non-userNOCO HealthcareStart: 12-26-2023 End: 59-20-9242Qrnjcwdkr beverage intakeCurrent drinker of alcohol (finding)[facility]OMS HealthcareStart: 12-26-2023 End: 01-53-0751Fjxuygifj beverage intakeNOCO HealthcareStart: 12-24-2022 End: 10-65-7241Muscysk use panelNOCO HealthcareStart: 56-82-9716Sneckst Comment coffee 1-2 cups per dayNOCO HealthcareStart: 31-38-4358Llw assigned at birthNot on fileJORDAN VALLEY [facility] HealthcareStart: 87-13-0548OeeTiozzaSLOD Healthcare Clinical Notes 12-31-2023 to 01-05-2025 Note Date & MmvuMncaAksunodq97-04-4325 History of Present illness Narrative* Evangelina Culver MD - 01/05/2025 1:45 PM EDT Images from the original note were not included. Evangelina Culver MD Obstetrics and Gynecology Patient: Jayda Rasmussen, : 1975 (49 y.o.) DOS 01/05/25 Exam Date: 01/05/2025 HPI: Yearly exam She is well Eeds refill of OCPs Visit Vitals BP 118/64 Wt 142 lb LMP 12/14/2024 BMI 24.00 kg/m OB Status Having periods Smoking Status Never BSA 1.71 m OB History Para Term AB Living 1 1 1 0 0 1 SAB IAB Ectopic Multiple Live Births 0 0 0 0 1 # Outcome Date GA Lbr Emmett/2nd Weight Sex Type Anes PTL Lv 1 Term Obstetric Comments Pap: 12/19-Neg CARON; HPV Neg Mammo: 03/25/24-Neg (TBH) Necon; every month, varies in blood loss, LMP: 12/14/24 Medication and Allergies Medication Documentation Review Audit Reviewed by Ela Garcias MA ([employer] Consultant) on 01/05/25 at 1342 Medication Order Taking? Sig Documenting Provider Last Dose Status Calcium Carbonate (CALCIUM 500 PO) [id number] Yes Take by mouth Evangelina Culver MD Active Discontinued 01/05/25 1341 loratadine (Claritin) 10 MG tablet [id number] Take 10 mg by mouth 1 (one) time each day at the same time. Historical Provider, Active Multiple Vitamin (multivitamin) tablet [id number] Yes Take 1 tablet by mouth Daily Evangelina Culver MDActive norethindrone-ethinyl estradiol (Alyacen ) 1-35 MG-MCG tablet [id number] Take 1 tablet by mouth in the morning. Evangelina Culver MD Active VITAMIN D PO [id number] Yes Take by mouth Evangelina Culver MD Active No Known Allergies Past Medical History: Diagnosis Date Abnormal Pap smear of cervix Past Surgical History: Procedure Laterality Date CERVICAL BIOPSY W/ LOOP ELECTRODE EXCISION SECTION, LOW TRANSVERSE 2013 COLPOSCOPY 2010 TYMPANOPLASTY Physical Exam: Objective Physical Exam Constitutional: Appearance: Normal appearance. Genitourinary: Vulva normal. No vaginal discharge or bleeding. Right Adnexa: not palpable. Left Adnexa: not palpable. No cervical lesion. Uterus is not enlarged or tender. Breasts: Right: Normal. Left: Normal. Abdominal: General: Abdomen is flat. Palpations: Abdomen is soft. Neurological: Mental Status: She is alert. Assessment/Plan ICD-10-CM 1. Well woman exam with routine gynecological exam Z01.419 2. Other screening mammogram Z12.31 Bilateral screening mammogram with tomosynthesis 3. Encounter for control pills maintenance Z30.41 norethindrone-ethinyl estradiol (Alyacen ) 1-35 MG-MCG tablet Orders Placed This Encounter Procedures Bilateral screening mammogram with tomosynthesis U/S and spot compression if indicated Standing Status: Future Expected Date: 03/26/2025 Expiration Date: 02/22/2026 Reason for exam:: screen Is the patient ?: No documented in this encounterSullivan County Memorial HospitalNbvqunnfer32-81-1262 History of Present illness Narrative* Thompson Rosenthal, DO - 06/09/2024 2:45 PM EST Images from the original note were not included. @ENCDATE@ Jayda Rasmussen is a 49 y.o. female who presents for Follow-up of the Right Shoulder and Follow-up of the Neck HPI: History of Present Illness The patient is a 49-year-old left-hand dominant female who presents today to follow up on her neck and upper extremity pain. She has been participating in physical therapy and was placed on a Medrol Dosepak on 04/20/2024. She reports that the initial days of prednisone administration provided some relief, but the overall impact was minimal. She found the stretching exercises in physical therapy beneficial, but the strength training did not yield significant improvement. Her pain is intermittent, though less severe thanbefore. She describes her pain as an ache, similar to a pulled muscle, localized more towards the trapezius and clavicle area rather than the shoulder. She continues to have a bump over the right S.C. joint. She reports no discomfort in the shoulder blade region. One of her physical therapists sugge sted the possibility of arthritis, given her history of lower back arthritis. She recalls a sessionwith a physical therapist who noted significant tension in the area and attempted to alleviate it through needling. She has not tried any topical treatments or patches for local application. She occasionally applies heat or ice post-therapy, finding heat more soothing. She also finds relief from soaking in a warm tub. She reports no issues with neck mobility. She has made modifications to her sleeping and working environment, including adding a 3-inch memory foam topper to her mattress and replacing her desk chair with one that can be adjusted to a higher position. These changes have resultedin the most noticeable improvement. However, she experienced a flare-up of symptoms after a strenuous day at [employer]. She uses a memory foam pillow and has had to adjust her sleeping position due to the mattress topper, now sleeping on her back or side instead of her stomach. She uses a full body pillow for support. She is a left-handed individual who has been actively involved in sports such as gymnastics, softball, and basketball throughout her life. Cold weather exacerbates her pain. SUBJECTIVE: MEDICATIONS: Current Outpatient Medications Medication Instructions Calcium-Vitamin D-Vitamin K (Calcium + D) 500-1000-40 MG-UNT-MCG chewable tablet as directed Orally loratadine (CLARITIN) 10 mg, Every 24 hours norethindrone-ethinyl estradiol (Alyacen 1/35) 1-35 MG-MCG tablet 1 tablet, Oral, Every morning ALLERGIES: No Known Allergies SURGICAL HISTORY: Past Surgical History: Procedure Laterality Date CERVICAL BIOPSY W/ LOOP ELECTRODE EXCISION SECTION, LOW TRANSVERSE 2013 COLPOSCOPY 2010 TYMPANOPLASTY FAMILY HISTORY: Family History Problem Relation Name Age of Onset Endometriosis Mother Diabetes Maternal Grandmother Grandmother Heart disease Maternal Grandmother Grandmother Stroke Maternal Grandmother Grandmother SOCIAL HISTORY: Social History Tobacco Use Smoking status: Never Smokeless tobacco: Never Substance Use Topics Alcohol use: Yes Alcohol/week: 2.0 standard drinks of alcohol Types: 2 Standard drinks or equivalent per week Comment: coffee 1-2 cups per day Drug use: Never Depression: Not on file REVIEW OF SYMPTOMS: Review of Systems The review of systems, history and current medications list are all reviewed today. OBJECTIVE: Visit Vitals Ht 5' 4.5 Wt 144 lb BMI 24.34 kg/m OB Status Having periods Smoking Status Never BSA 1.72 m Physical Exam Alert and oriented, no acute distress. Mood and affect are appropriate. CERVICAL SPINE The patient has well-maintained flexion and extension, rotation and side-bending and range of motion does not produce any symptoms into the shoulder. Negative Spurling's. There is no paraspinal or midline cervical tenderness. RIGHT SHOULDER The skin is warm, dry, and intact. There is no swelling, atrophy, or deformity. The patient can raise the arm overhead. Full forward elevation, abduction, internal and external rotation. No weakness with internal and external rotation, resisted supination, or forward flexion. Negative Virden's. Negative Neer/Bird impingement. No tenderness over the AC joint. Negative cross-arm adduction. Negative Speed's and Yergason's. No instability. Prominence and tenderness over S.C. joint. No erythema. LEFT SHOULDER The skin is warm, dry, and intact. There is no swelling, atrophy, or deformity. The patient can raise the arm overhead. Full forward elevation, abduction, internal and external rotation. No weakness with internal and external rotation, resisted supination, or forward flexion. Negative Virden's. Negative Neer/Bird impingement. No tenderness over the AC joint. Negative cross-arm adduction. Negative Speed's and Yergason's. No instability. BILATERAL UPPER EXTREMITIES Sensation is intact to light touch over all dermatomes. The patient can make an OK sign, cross the fingers, and extend the thumb against resistance. 5/5 elbow flexion and extension, shoulder abduction, and shoulder shrug. Biceps, triceps, brachioradialis reflexes are symmetric. Negative Mora's. Brisk capillary refill and palpable radial pulses. Ortho Exam Results ASSESSMENT AND PLAN: I reviewed the history, physical exam, diagnostic studies, and diagnosis with the patient. Assessment & Plan 1. Sternoclavicular pain, right shoulder She is advised to apply Voltaren gel and Salonpas lidocaine patches to the affected area to see if these provide relief. If her condition does not improve or worsens, she should contact the office, at which point a CT scan of the chest area may be ordered for further evaluation. Continue with work position modifications and sleep/bed modifications. The patient would like to leave follow up to his/her own discretion. A total of 20 to 29 minutes was spent on this patient encounter which included chart review, check in, nurse triage, history taking, physical examination, diagnostic study review, patient counseling and discussion, entering information into the patient's medical record, and coordinating patient care There are no diagnoses linked to this encounter. Thompson Rosenthal D.O. Attestation This note was created using voice recognition through [employer]. documented in this encounterSullivan County Memorial [id number] History of Present illness Narrative* Brian Solomon, PT - 05/12/2024 4:00 PM EST Images from the original note were not included. Physical Therapy Treatment Visit Patient Name: Jayda Rasmussen Today's Date: 05/12/24 Encounter Diagnoses Name Primary? Right shoulder pain, unspecified chronicity Yes Visit number: 3 (1 visit in 2023) Timed Code Treatment: 40 minutes Total Treatment Time: 40 minutes Time In: 4:30 PM Time Out: 5:10 PM History: Pt. Presents to PT with c/c of right anterior shoulder/clavicle pain which started in January. Pt. Was moving a case of water at [employer] and felt a pop in shoulder. Reports predizone helping to decrease pain. Pt is on 7 days of predizone. Left hand dominant. Precautions: as tolerated Subjective: Reports not much improvement. Has a dip in her right clavicle now. Some days she has pain and other days she has no pain. Pain: denies Objective: PT Evaluation (04/27/24) Right shoulder AROM: normal ROM in all planes Right shoulder flexibility: moderate right Upper trapezius/levator scapula muscle tightness Right shoulder strength: grossly 4 to 4+/5 in all planes Palpation: TTP right stenoclavicular joint and anterior shoulder Treatment: Manual Therapy: (16 minutes) Passive ROM, Joint mobilization, Soft Tissue Mobilization, Myofascial Release, Muscle Energy Technique, Neural Mobilization, Myofascial Cupping, Dry Needling, IASTM, and Scar mobilization Therapeutic Exercise: (24 minutes supervised ) Guided pt through ther and flex ex per grid to improve postural awareness, scapular, R UE, shoulder Strength, Endurance, Flexibility, ROM, HEP Therapeutic Activity: Exercises to improve dynamic activities, functional tasks, functional mobility to return to prior activity level Neuromuscular re-education: Balance Training, Muscle Facilitation, Dynamic Stability, Core Stabilization, and Blood Flow Restriction Training (BFRT) Modalities: ( minutes) CP to R Sternoclavicular area post session to decrease soreness DN: 1x needle, fanning, right upper trapezius, Assessment: Pt has participated in 3 PT session with start of POC on 04/27/24 for right shoulder pain. Trial ofDN to right upper trapezius muscle today. 3x LTRs. Pt. Tolerated well. Continue to work to improve scapular muscle strength. Follows up with Dr Rosenthal 2-4 Outcome Measure: 64/80 Short Term Goal: To be met in 2 weeks Goal 1: Pt to be instructed in home exercise program. 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 Goal 2: Pt. Will report of 0/10 right shoulder pain while lift/reaching to perform overhead tasks to help improve her quality of life. Goal 3: pt. Will demonstrate normal right shoulder girdle muscle flexibility to help decrease pain and return to PLOF. Goal 4: Pt. Will demonstrate 5/5 right shoulder strength grossly in all planes to allow her to liftobjects to perform daily household activities. Goal 5: Pt. Will score 75 or greater on UEFS to help improve her functional mobility. Pt will benefit from skilled PT for 1-3x/week from 04/27/24 to 07/20/24 to address the above impairments. I hereby deem this POC medically necessary. Please sign below. Date: documented in this [facility]12-23-2024 History of Present illness Narrative* Thompson Rosenthal, DO - 04/20/2024 11:45 AM EST Images from the original note were not included. @ENCDATE@ [facility] Bhavna is a 48 y.o. female who presents for Pain of the Right Shoulder HPI: History of Present Illness The patient is a 48-year-old female who presents as a new patient today for right shoulder pain. She is left-handed. She first experienced discomfort in her right arm in 01/2024, characterized by tenderness that was intermittent in nature. In 02/2024, she observed an elevation in her right medial collarbone compared to the left, which has been a persistent but non-painful issue. As a former ath lete, she acknowledges a high pain tolerance and may not always be aware of symptoms. During weekend, while lifting cases of water, she heard a popping sound accompanied by brief pain. Since then, she has experienced occasional sharp pains with certain movements. Last week, while assisting her son at basketball practice, she felt a crinkling sensation when pulling on his high-top shoes, followed by a period of relief. She reports no constant pain but describes regular discomfort,particularly at night. She also experiences muscle soreness in her neck and shoulder, which is morepronounced in the evening. She finds it difficult to find a comfortable sleeping position and does not believe her condition will improve without intervention. She has been avoiding heavy lifting. 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 She reports varying degrees of discomfort, including tightness with lifting, but maintains full range of motion. She occasionally experiences tingling down her arm. She has a family history of scoliosis in her maternal aunt and was tested for it in her youth, but was not diagnosed due to a curvature of less than 5 degrees She has a history of competitive gymnastics from the age of 5, softball, cheerleading, cross countryrunning, basketball, and dirt bike riding. She has taken Aleve or naproxen on a few occasions. FAMILY HISTORY Her maternal aunt had scoliosis and was in a brace from chin to hip for quite some time. SUBJECTIVE: MEDICATIONS: Current Outpatient Medications Medication Instructions Calcium-Vitamin D-Vitamin K (Calcium + D) 500-1000-40 MG-UNT-MCG chewable tablet as directed Orally loratadine (CLARITIN) 10 mg, Every 24 hours norethindrone-ethinyl estradiol (Alyacen 1/) 1-35 MG-MCG tablet 1 tablet, Oral, Every morning predniSONE (Deltasone) 10 MG tablet 6 pills day 1 & 2, 5 pills day 3 & 4, 4 pills day 5 & 6, 3 pills day 7 & 8, 2 pills day 9 & 10, 1 pill day 11 & 12 ALLERGIES: No Known Allergies SURGICAL HISTORY: Past Surgical History: Procedure Laterality Date CERVICAL BIOPSY W/ LOOP ELECTRODE EXCISION SECTION, LOW TRANSVERSE 2013 COLPOSCOPY 2010 TYMPANOPLASTY FAMILY HISTORY: Family History Problem Relation Name Age of Onset Endometriosis Mother Diabetes Maternal Grandmother Grandmother Heart disease Maternal Grandmother Grandmother Stroke Maternal Grandmother Grandmother SOCIAL HISTORY: Social History Tobacco Use Smoking status: Never Smokeless tobacco: Never Substance Use Topics Alcohol use: Yes Alcohol/week: 2.0 standard drinks of alcohol Types: 2 Standard drinks or equivalent per week Comment: coffee 1-2 cups per day Drug use: Never Depression: Not on file REVIEW OF SYMPTOMS: Review of Systems The review of systems, history and current medications list are all reviewed today. OBJECTIVE: Visit Vitals Temp 97.4 F Ht 5' 4.5 Wt 144 lb BMI 24.34 kg/m OB Status Having periods Smoking Status Never BSA 1.72 m Physical Exam Alert and oriented, no acute distress. Mood and affect are appropriate. Ambulating independently. Gait is nonantalgic. CERVICAL SPINE Maintained ROM. Some discomfort in R trapezius with ROM. Tender paraspinal musculature on lower right side. Negative spurlings RIGHT SHOULDER The skin is warm, dry, and intact. The patient's sternoclavicular joint is slightly more prominent on the right side. No tenderness, swelling, or redness. The patient has good shoulder mobility and strength.The patient can raise the arm overhead. Full forward elevation, abduction, internal and external rotation. No weakness with internal and external rotation, resisted supination, or forward flexion. positive Virden's. Positive Neer/Bird impingement. No tenderness over the AC joint. Negative cross-arm adduction. Negative Speed's and Yergason's.No instability. LEFT SHOULDER The skin is warm, dry, and intact. There is no swelling, atrophy, or deformity. The patient can raise the arm overhead. Full forward elevation, abduction, internal and external rotation. No weakness with internal and external rotation, resisted supination, or forward flexion. Negative Virden's. Negative Neer/Bird impingement. No tenderness over the AC joint. Negative cross-arm adduction. Negative Speed's and Yergason's. No instability. Ortho Exam Results Imaging 4 views right shoulder, Grashey/Zanca/outlet/axillary, taken today and saved to the permanent medical record are reviewed. GH and AC joint spaces preserved. AHI WNL. Type 2 acromion. 2 views cervical spine, AP/lateral, taken today and saved to the permanent medical record. Loss of lordosis. Disc narrowing and endplate osteophytes at C6-C7. ASSESSMENT AND PLAN: I reviewed the history, physical exam, diagnostic studies, and diagnosis with the patient. Assessment & Plan 1. Cervical disc disease with right upper extremity radiculopathy The right sternoclavicular joint exhibits a slight prominence, likely due to muscle imbalance rather than trauma-induced ligament damage. The absence of the normal cervical curve suggests increased muscle tension. The presence of narrowing and spurring at one level could be exerting pressure on the intervertebral disc, potentially causing nerve irritation and referred pain to the collar bone and shoulder. An oral steroid will be prescribed to alleviate inflammation. Physical therapy will be initiated to address the muscles and joints around the neck and shoulder girdle. If there is no improvement in symptoms after 6 weeks, further diagnostic steps will be considered. Follow-up The patient will follow up in 6 weeks. Diagnoses and all orders for this visit: Right shoulder pain, unspecified chronicity - XR shoulder 2+ views right - XR cervical spine 2 or 3 views - Ambulatory referral to Physical Therapy; Future - predniSONE (Deltasone) 10 MG tablet; 6 pills day 1 & 2, 5 pills day 3 & 4, 4 pills day 5 & 6, 3 pills day 7 & 8, 2 pills day 9 & 10, 1 pill day 11 & 12 A total of 45-59 minutes was spent on this patient encounter which included chart review, check in,nurse triage, history taking, physical examination, diagnostic study review, patient counseling anddiscussion, entering information into the patient's medical record, and coordinating patient care. Thompson Rosenthal D.O. Attestation This note was created using voice recognition through [employer]. documented in this encounterSullivan County Memorial [id number] History of Present illness Narrative* Evangelina Culver MD - 12/31/2023 1:30 PM EDT Images from the original note were not included. Evangelina Culver MD Obstetrics and Gynecology Patient: Jayda RasmussenDOB: 1975 (48 y.o.) DOS 12/31/23 Exam Date: 12/31/2023 HPI: Yearly exam Needs refill of OCPs Visit Vitals BP 110/72 Wt 140 lb LMP 10/30/2023 BMI 24.03 kg/m OB Status Having periods Smoking Status Never BSA 1.69 m OB History Para Term AB Living 1 1 1 0 0 1 SAB IAB Ectopic Multiple Live Births 0 0 0 0 1 # Outcome Date GA Lbr Emmett/2nd Weight Sex Type Anes PTL Lv 1 Term Obstetric Comments Pap: 12/19-Neg CARON; HPV Neg Mammo: 03/19/23-Neg (TBH) Necon; every month, varies in blood loss, LMP: 10/30/23 Medication and Allergies Medication Documentation Review Audit Reviewed by Ela Garcias MA ([employer] Consultant) on 12/31/23 at 1335 Medication Order Taking? Sig Documenting Provider Last Dose Status Alyacen 1-35 MG-MCG tablet [id number] TAKE 1 TABLET BY MOUTH EVERY DAY IN THE MORNING Evangelina Culver MD Active Calcium-Vitamin D-Vitamin K (Calcium + D) 500-1000-40 MG-UNT-MCG chewable tablet [id number] as directed Orally Historical Provider, Active loratadine (Claritin) 10 MG tablet [id number] Take 10 mg by mouth 1 (one) time each day at the same time. Historical Provider, Active No Known Allergies Past Medical History: Diagnosis Date Abnormal Pap smear of cervix Past Surgical History: Procedure Laterality Date CERVICAL BIOPSY W/ LOOP ELECTRODE EXCISION SECTION, LOW TRANSVERSE 2013 COLPOSCOPY 2010 TYMPANOPLASTY Physical Exam: Objective Physical Exam Constitutional: Appearance: Normal appearance. Genitourinary: Vulva normal. No vaginal discharge or bleeding. Right Adnexa: not palpable. Left Adnexa: not palpable. No cervical lesion. Uterus is not enlarged or tender. Breasts: Right: Normal. Left: Normal. Pulmonary: Effort: Pulmonary effort is normal. Abdominal: Palpations: Abdomen is soft. Neurological: Mental Status: She is alert. Associated Treatments and Results - ICD-10-CM 1. Well woman exam with routine gynecological exam Z01.419 2. Other screening mammogram Z12.31 Bilateral screening mammogram with tomosynthesis Assessment/Plan Orders Placed This Encounter Procedures Bilateral screening mammogram with tomosynthesis U/S and spot compression if indicated Standing Status: Future Standing Expiration Date: 02/24/2025 Order Specific Question: Reason for exam: Answer: screen Order Specific Question: Is the patient ? Answer: No documented in this [facility]* Diagnosis Encounter for control pills maintenance- Primary Surveillance of previously prescribed contraceptive pill Well woman exam with routine gynecological exam Routine gynecological examination Other screening mammogram documented in this encounter [facility] note* Diagnosis Right shoulder pain, unspecified chronicity- Primary documented in this encounter [facility] note* Diagnosis Right shoulder pain, unspecified chronicity- Primary documented in this encounter [facility] note* Diagnosis Right shoulder pain, unspecified chronicity- Primary documented in this encounter [facility] note* Diagnosis Right shoulder pain, unspecified chronicity- Primary documented in this encounter [facility] note* Diagnosis Right shoulder pain, unspecified chronicity- Primary documented in this encounter [facility] note* Diagnosis Right shoulder pain, unspecified chronicity- Primary documented in this encounter [facility] HealthcareEvaluation note* Diagnosis Well woman exam with routine gynecological exam- Primary Routine gynecological examination Other screening mammogram Encounter for control pills maintenance Surveillance of previously prescribed contraceptive pill documented in this encounter [facility] HealthcareReason for visit Narrative* Consultation (Routine) - Authorized SpecialtyDiagnoses / ProceduresReferred By ContactReferred To ContactPhysical Therapy Diagnoses Right shoulder pain, unspecified chronicity Procedures MS OFFICE/OUTPATIENT [facility] Thompson Rosenthal, DO [address] [facility] [place] [address] Phone: tel: fax: Brian Solomon, PT [address] [facility] [address] [place] [address] Phone: tel: fax: Referral IDStatusReasonStart DateExpiration DateVisits RequestedVisits [id number] Consult and Treat / [facility] HospitalReason for visit Narrative* Consultation (Routine) - Authorized SpecialtyDiagnoses / ProceduresReferred By ContactReferred To ContactPhysical Therapy Diagnoses Right shoulder pain, unspecified chronicity Procedures MS MANUAL THERAPY TQS 1/> REGIONS EACH 15 MINUTES PHYS/OCC THERAPY SS MS THERAPEUTIC PX 1/> AREAS EACH 15 MIN EXERCISES MS THER PX 1/> AREAS EACH 15 MIN NEUROMUSC REEDThompson Chadwick, DO [address] [place] [address] Phone: tel: fax: Brian Solomon, PT [address] [place] [address] Phone: tel: fax: Referral IDStatusReasonStart DateExpiration DateVisits RequestedVisits [id number] [facility] HealthcareReason for visit Narrative* Consultation (Routine) - Authorized SpecialtyDiagnoses / ProceduresReferred By ContactReferred To ContactPhysical Therapy Diagnoses Right shoulder pain, unspecified chronicity Procedures MS MANUAL THERAPY TQS 1/> REGIONS EACH 15 MINUTES PHYS/OCC THERAPY SS MS THERAPEUTIC PX 1/> AREAS EACH 15 MIN EXERCISES MS THER PX 1/> AREAS EACH 15 MIN NEUROMUSC REEDThompson Chadwick, DO [address] [place] [address] Phone: tel: fax: Brian Solomon, PT [address] [place] [address] Phone: tel: fax: Referral IDStatusReasonStart DateExpiration DateVisits RequestedVisits [id number]/202555 [facility] HealthcareReason for visit Narrative* Consultation (Routine) - Authorized SpecialtyDiagnoses / ProceduresReferred By ContactReferred To ContactPhysical Therapy Diagnoses Right shoulder pain, unspecified chronicity Procedures MS MANUAL THERAPY TQS 1/> REGIONS EACH 15 MINUTES PHYS/OCC THERAPY SS MS THERAPEUTIC PX 1/> AREAS EACH 15 MIN EXERCISES MS THER PX 1/> AREAS EACH 15 MIN NEUROMUSC REEDUCA Thompson Rosenthal, DO [address] [place] [address] Phone: tel: fax: Brian Solomon, PT [address] [address] Phone: tel: fax: Referral IDStatusReasonStart DateExpiration DateVisits RequestedVisits [id number] [facility] HealthcareReason for visit Narrative* Consultation (Routine) - Closed SpecialtyDiagnoses / ProceduresReferred By ContactReferred To ContactPhysical Therapy Diagnoses Right shoulder pain, unspecified chronicity Procedures MS MANUAL THERAPY TQS 1/> REGIONS EACH 15 MINUTES PHYS/OCC THERAPY SS MS THERAPEUTIC PX 1/> AREAS EACH 15 MIN EXERCISES MS THER PX 1/> AREAS EACH 15 MIN NEUROMUSC REEDThompson Chadwick, DO [address] [place] [address] Phone: tel: fax: Brian Solomon, PT [address] [address] Phone: tel: fax: Referral IDStatusReasonStart DateExpiration DateVisits RequestedVisits [id number] [facility] Healthcare Summary Purpose Family History No Family History Records FoundNo Family History Records Found Advance Directives No Advanced Directives Records FoundNo Advanced Directives Records Found Additional Source Comments INFORMATION SOURCE (unrecogn ized section and content) DATE CREATED AUTHOR 03/19/2022 [facility] DATE CREATED AUTHOR AUTHOR'S ORGANIZ ATION 01/07/2025 [facility] EPIC Care Teams (unrecognized sec tion and content) Team MemberRelationshipSpecialtyStart DateEnd Date Unallocated, [place] Provider, [place] [address] PCP - General12/24/22Team MemberRelationshipSpecialtyStart DateEnd Date Unallocated, [place] ProviderMD [address] [place] [address] [facility]12/24/22 MemberRelationshipSpecialtyStart DateEnd Date Unallocated, [facility] ProviderMD [address] [place] [address] [facility]12/24/22 MemberRelationshipSpecialtyStart DateEnd Date Unallocated, [place] ProviderMD [address] [place] [address] [facility]12/24/22 MemberRelationshipSpecialtyStart DateEnd Date Unallocated, [place] ProviderMD [address] [place] [address] [facility]12/24/22[facility] MemberRelationshipSpecialtyStart DateEnd Date Unallocated, [place] ProviderMD [address] [place] [address] [facility]12/24/22[facility] MemberRelationshipSpecialtyStart DateEnd Date Unallocated, [place] ProviderMD [address] [place] [address] [facility]12/24/22 MemberRelationshipSpecialtyStart DateEnd Date Unallocated, [place] ProviderMD [address] [place] [address] [facility]12/24/22[facility] MemberRelationshipSpecialtyStart DateEnd Date Unallocated, [place] ProviderMD [address] [place] [address] [facility]12/24/22[facility] MemberRelationshipSpecialtyStart DateEnd Date Unallocated, N[place] Provider MD [address] [address] [facility]12/24/22Te MemberRelationshipSpecialtyStart DateEnd Date Unallocated, Jessica Campos MD [address] [place] [address] PCP [facility]12/24/22Te MemberRelationshipSpecialtyStart DateEnd Date Unallocated, Jessica Campos MD [facility] [address] [address] [facility]12/24/22Te MemberRelationshipSpecialtyStart DateEnd Date Unallocated, Jessica Campos MD [facility] [address] [facility]12/24/22Te MemberRelationshipSpecialtyStart DateEnd Date Unallocated, Jessica Campos MD [address] [place], [place] [address] [address] [facility]12/24/22Te MemberRelationshipSpecialtyStart DateEnd Date Unallocated, Jessica Campos MD [address] [place], [place] [address] [address] [facility]12/24/22Te MemberRelationshipSpecialtyStart DateEnd Date Unallocated, Jessica Campos MD [facility] [place] [address] [facility]12/24/22 Reason for Visit (unrecogniz ed section and content) ReasonCommentsPainReasonCommentsFollow-up FOR RECORDS PERTAINING TO PATIENTS WHO ARE [...] BE BASED ON THE PRIMARY CLINICAL RECORDS. [facility] provides no warranty or guarantee of the accuracy or completeness of information in this document.
== END 2025-03-30 16:06 | disposition home or self-care (01) ==
LOC: MAMMO 16:05
PROVIDERS: PCP Obstetrics & Gynecology; Visit Provider Obstetrics & Gynecology
DX: Z12.31 Encounter for screening mammogram for malignant neoplasm of breast (principal)
CPT/HCPCS: 77063; 77067